=== PATIENT | male | born 1965 | race Two or more races ===

== ENCOUNTER 2021-05-13 13:41 | Inpatient (IN) | payer MEDICARE, MEDICAID ==
[~2021-05-13] VITALS: Ht 170.2 cm; Wt 109.0 kg
[2021-05-13 06:00] VITALS: BP 159/82
[~2021-05-13 13:41] MED LIST: ASPI81CH49 PO; COLLPOW10 XX; ENAL10TA13 PO; GABA300C10 PO; INSLANTI SUBCUT
[2021-05-13 14:23] LABS: Basophils # (auto) 0 10 ^3/uL (0-0.2); Basophils % (auto) 0.3 % (0.0-2.0); Eosinophils # (auto) 0 10 ^3/uL (0-0.8); Hemoglobin 14.7 g/dL (13.5-17.5); Lymphocytes # (auto) 0.6 10 ^3/uL (0.4-5.4); Lymphocytes % (auto) 6.9 % (10.0-50.0); Mean Corpuscular Hemoglobin 30.2 pg (28.0-32.0); Mean Corpuscular Hgb Conc. 34.3 g/dL (32.0-36.0); Monocytes # (auto) 0.7 10 ^3/uL (0-1.3); Monocytes % (auto) 7.3 % (0.0-12.0); Neutrophils % (auto) 85.5 % (37.0-80.0); Red Blood Cells 4.88 10^6/uL (4.5-5.90); Red Cell Distribution Width 12.9 % (11.8-14.3); White Blood Cell 9.3 10^3/uL (4.4-10.8)
[2021-05-13 14:45] LABS: Albumin 2.2 g/dL (3.4-5.0); Calcium 7.9 mg/dL (8.5-10.1); Potassium 4.8 mmol/L (3.5-5.1)
[2021-05-13 14:48] LABS: Lactic Acid w/Reflex 5.8 mmol/L (0.4-2.0)
[2021-05-13 14:51] LABS: BUN/Creatinine Ratio 15.2; Bilirubin, Total 0.5 mg/dL (0.2-1.0); Total Protein 7.8 g/dL (6.4-8.2)
[2021-05-13] MEDS ORDERED: DexAMETHasone SOD PHOS 10MG/1ML VIAL INJ IV ONE (18:15)
[2021-05-13] MEDS ORDERED: NITROGLYCERIN 0.4 MG SL TAB SL PRN ×2 (18:15→21:00)
[2021-05-13] MEDS ORDERED: FUROSEMIDE 40 MG/4 ML VIAL IV ONE (18:15)
[2021-05-13] MEDS ORDERED: ALBUMIN 25% 100 ML IV ONE (18:15)
[2021-05-13] MEDS ORDERED: MORPHINE SULFATE INJECTION 2 MG/ML SYRG IV PRN ×3 (18:15→21:00)
[2021-05-13] MEDS ORDERED: SODIUM CHLORIDE 0.9% 250 ML IV ONE (18:30)
[2021-05-13] MEDS: ALBUMIN 25% 100 ML IV SCH (18:53)
[2021-05-13] MEDS ORDERED: DEXTROSE (50%) 50ML SYRG IV PRN (20:30)
[2021-05-13] MEDS ORDERED: ENOXAPARIN SOD 100 MG/1 ML SYRINGE SC ONE (20:30)
[2021-05-13] MEDS ORDERED: ISOSORBIDE MONONITRATE ER 60 MG TAB PO ONE (20:30)
[2021-05-13] MEDS ORDERED: METOPROLOL SUCCINATE XL 50 MG TAB PO ONE (20:45)
[2021-05-13] MEDS ORDERED: ACETAMINOPHEN 325 MG TAB PO PRN (21:00)
[2021-05-13] MEDS ORDERED: ACETAMINOPHEN 500 MG TAB PO PRN (21:00)
[2021-05-13] MEDS ORDERED: DOCUSATE SOD 100 MG CAP PO PRN (21:00)
[2021-05-13] MEDS ORDERED: hydrALAZINE HCL 20 MG/ML VL IV PRN (21:00)
[2021-05-13] MEDS ORDERED: ALUM & MAG HYDROX-SIMETH LIQ(MAALOX) 30 ML PO PRN (21:00)
[2021-05-13] MEDS ORDERED: REMDESIVIR PER PHARMACY 0 ML IV SCH (21:00)
[2021-05-13] MEDS ORDERED: ONDANSETRON HCL 4 MG/2 ML VIAL IV PRN (21:00)
[2021-05-13] MEDS ORDERED: HYDROcodone-ACET 5/325MG TAB PO PRN (21:00)
[2021-05-13] MEDS ORDERED: LORazepam 0.5 MG TAB PO PRN (21:00)
[2021-05-13] MEDS: DOXYCYCLINE 100MG/250ML 250 ML IV SCH (21:36)
[2021-05-13] MEDS: ATORVASTATIN 20 MG TAB PO SCH (21:37)
[2021-05-13] MEDS: BUDESONIDE (INHALATION) 180 MCG IH IN SCH (22:00)
[2021-05-13] MEDS ORDERED: REMDESIVIR 200 MG in NS 210ml LOADING DOSE ADULT IV ONE (22:15)
[2021-05-13] MEDS: ACCU-CHEK COMFORT CURVE STRIP VI SCH (23:32)
[2021-05-13] MEDS: InsuLIN REG 1unit/0.01ml Soln (100units/ml) SC SCH (23:33)
[2021-05-14] LABS: Basophils # (auto) 0 10 ^3/uL (0-0.2); Basophils % (auto) 0.1 % (0.0-2.0); Eosinophils # (auto) 0 10 ^3/uL (0-0.8); Hemoglobin 13.3 g/dL (13.5-17.5); Lymphocytes # (auto) 0.5 10 ^3/uL (0.4-5.4); Mean Corpuscular Hemoglobin 29.3 pg (28.0-32.0); Mean Corpuscular Hgb Conc. 33.3 g/dL (32.0-36.0); Mean Corpuscular Volume 87.9 fL (80.0-100.0); Monocytes # (auto) 0.5 10 ^3/uL (0-1.3); Monocytes % (auto) 4.8 % (0.0-12.0); Neutrophils # (auto) 8.5 10 ^3/uL (1.6-8.6); Neutrophils % (auto) 90.1 % (37.0-80.0); Nucleated Red Blood Cells % 0.1 %; Red Blood Cells 4.55 10^6/uL (4.5-5.90); White Blood Cell 9.5 10^3/uL (4.4-10.8)
[2021-05-14 00:23] LABS: Potassium 5.4 mmol/L (3.5-5.1)
[2021-05-14 01:08] LABS: Albumin 2.3 g/dL (3.4-5.0); BUN/Creatinine Ratio 16.4; Bilirubin, Total 0.5 mg/dL (0.2-1.0); Calcium 7.5 mg/dL (8.5-10.1); Magnesium 2.2 mg/dL (1.6-2.6); Total Protein 7.1 g/dL (6.4-8.2)
[2021-05-14 01:18] LABS: Thyroid Stimulating Hormone 0.53 uIU/mL (0.358-3.74)
[2021-05-14 01:26] LABS: CRP High Sensitivity 17.3 mg/dL (< 0.3)
[2021-05-14 02:00] LABS: Urine Bacteria NONE SEEN /hpf (None Seen); Urine Blood 1+ /uL (Negative); Urine Hyaline Cast FEW /lpf (0 - 2); Urine Specific Gravity 1.015 (1.001-1.035); Urine WBC 1 /hpf (0 - 3)
[2021-05-14] MEDS: ALBUMIN 25% 100 ML IV SCH ×2 (02:32→10:45)
[2021-05-14 02:52] LABS: Amphetamine Screen, Urine NEGATIVE (NEGATIVE); Barbiturate Scree,Urine NEGATIVE (NEGATIVE); Cocaine Screen, Urine NEGATIVE (NEGATIVE); Opiate Scree,Urine NEGATIVE (NEGATIVE)
[2021-05-14 03:08] LABS: Benzodiazephine Screen, Urine NEGATIVE (NEGATIVE); Cannabinoid Screen, Urine NEGATIVE (NEGATIVE); Phencyclidine Screen, Urine NEGATIVE (NEGATIVE)
[2021-05-14] MEDS: ACCU-CHEK COMFORT CURVE STRIP VI SCH ×4 (05:39→22:42)
[2021-05-14] MEDS: BUMETANIDE 2.5mg/10ml (0.25 mg/ml) INJ IV SCH ×2 (05:45→19:25)
[2021-05-14] MEDS: InsuLIN REG 1unit/0.01ml Soln (100units/ml) SC SCH ×4 (05:52→22:42)
[2021-05-14 06:06] LABS: Basophils # (auto) 0 10 ^3/uL (0-0.2); Basophils % (auto) 0.3 % (0.0-2.0); Eosinophils # (auto) 0 10 ^3/uL (0-0.8); Hemoglobin 12.7 g/dL (13.5-17.5); Lymphocytes # (auto) 0.7 10 ^3/uL (0.4-5.4); Mean Corpuscular Hemoglobin 29.2 pg (28.0-32.0); Mean Corpuscular Hgb Conc. 33.4 g/dL (32.0-36.0); Mean Corpuscular Volume 87.3 fL (80.0-100.0); Monocytes # (auto) 0.5 10 ^3/uL (0-1.3); Monocytes % (auto) 5.9 % (0.0-12.0); Neutrophils # (auto) 6.4 10 ^3/uL (1.6-8.6); Neutrophils % (auto) 84.8 % (37.0-80.0); Nucleated Red Blood Cells % 0.1 %; Red Blood Cells 4.35 10^6/uL (4.5-5.90); Red Cell Distribution Width 12.8 % (11.8-14.3); White Blood Cell 7.6 10^3/uL (4.4-10.8)
[2021-05-14 06:23] LABS: INR 1.04 (0.9-1.15); Partial Thromboplastin Time 34.9 sec (23.6-33.0)
[2021-05-14 06:29] LABS: Potassium 4.6 mmol/L (3.5-5.1)
[2021-05-14 06:57] LABS: Albumin 2.6 g/dL (3.4-5.0); BUN/Creatinine Ratio 17.7; Bilirubin, Total 0.4 mg/dL (0.2-1.0); Calcium 7.7 mg/dL (8.5-10.1); Magnesium 2.9 mg/dL (1.6-2.6); Phosphorus 2.5 mg/dL (2.5-4.90); Uric Acid 9.4 mg/dL (3.5-7.2)
[2021-05-14] MEDS ORDERED: IVERMECTIN 3 MG TAB PO SCH (10:00)
[2021-05-14] MEDS: CHOLECALCIFEROL (VITD3) 2,000 UNIT CAP/TAB PO SCH (10:45)
[2021-05-14] MEDS: ISOSORBIDE MONONITRATE ER 60 MG TAB PO SCH (10:45)
[2021-05-14] MEDS: METOPROLOL SUCCINATE XL 50 MG TAB PO SCH (10:45)
[2021-05-14] MEDS: ASCORBIC ACID 1,000 MG TAB PO SCH (10:45)
[2021-05-14] MEDS: ZINC SULFATE 220mg CAP or TAB PO SCH (10:45)
[2021-05-14] MEDS: ASPirin 81 mg TAB PO SCH (10:45)
[2021-05-14] MEDS: DexAMETHasone SOD PHOS 10MG/1ML VIAL INJ IV SCH (10:45)
[2021-05-14] MEDS: DOXYCYCLINE 100MG/250ML 250 ML IV SCH ×2 (12:26→14:26)
[2021-05-14] MEDS: ALBUTEROL SULF HFA 90MCG INH 200DOSE IN PRN ×2 (15:27→18:48)
[2021-05-14] MEDS: BUDESONIDE (INHALATION) 180 MCG IH IN SCH ×2 (15:27→18:48)
[2021-05-14] MEDS: REMDESIVIR 100mg 100 MG in SODIUM CHL 0.9% 230 ML IV SCH (15:29)
[2021-05-14 18:10] VITALS: BP 159/82
[2021-05-14 20:00] VITALS: BP 159/82
[2021-05-14] MEDS ORDERED: amLODIPine BESYLATE 5 MG TAB PO ONE ×2 (20:45→23:15)
[2021-05-14] MEDS ORDERED: CEFTRIAXONE SODIUM 2 GM in D5W 5% 50 ML IV ONE (20:45)
[2021-05-14] MEDS ORDERED: ENOXAPARIN SOD 100 MG/1 ML SYRINGE SC SCH (21:00)
[2021-05-14 22:00] VITALS: BP 135/66
[2021-05-14] MEDS: INSULIN LANTUS (GLARGINE) 1 /0.01ml (100units/ml) SC SCH (22:41)
[2021-05-14] MEDS: ATORVASTATIN 20 MG TAB PO SCH (22:41)
[2021-05-15 05:00] VITALS: BP 102/65
[2021-05-15] MEDS: ACCU-CHEK COMFORT CURVE STRIP VI SCH ×3 (05:39→18:01)
[2021-05-15] MEDS: InsuLIN REG 1unit/0.01ml Soln (100units/ml) SC SCH ×3 (05:40→18:02)
[2021-05-15 07:04] LABS: BUN/Creatinine Ratio 27.2; Potassium 4.2 mmol/L (3.5-5.1)
[2021-05-15 08:00] VITALS: BP 126/54
[2021-05-15] MEDS: CEFTRIAXONE SODIUM 2 GM in D5W 5% 50 ML IV SCH (08:58)
[2021-05-15] MEDS: DexAMETHasone SOD PHOS 10MG/1ML VIAL INJ IV SCH (08:58)
[2021-05-15] MEDS: DOXYCYCLINE 100MG/250ML 250 ML IV SCH (08:59)
[2021-05-15] MEDS: ASCORBIC ACID 1,000 MG TAB PO SCH (08:59)
[2021-05-15] MEDS: ZINC SULFATE 220mg CAP or TAB PO SCH (08:59)
[2021-05-15] MEDS: CHOLECALCIFEROL (VITD3) 2,000 UNIT CAP/TAB PO SCH (08:59)
[2021-05-15] MEDS: ASPirin 81 mg TAB PO SCH (08:59)
[2021-05-15 09:00] VITALS: BP 126/54
[2021-05-15] MEDS: FUROSEMIDE 40 MG/4 ML VIAL IV SCH (09:01)
[2021-05-15] MEDS: METOPROLOL SUCCINATE XL 50 MG TAB PO SCH (09:02)
[2021-05-15] MEDS: amLODIPine BESYLATE 5 MG TAB PO SCH (09:02)
[2021-05-15] MEDS: ISOSORBIDE MONONITRATE ER 60 MG TAB PO SCH (09:02)
[2021-05-15] MEDS: BUDESONIDE (INHALATION) 180 MCG IH IN SCH ×2 (12:12→22:05)
[2021-05-15] MEDS: ALBUTEROL SULF HFA 90MCG INH 200DOSE IN PRN (12:12)
[2021-05-15 14:00] VITALS: BP 134/63
[2021-05-15] MEDS: REMDESIVIR 100mg 100 MG in SODIUM CHL 0.9% 230 ML IV SCH (14:08)
[2021-05-15 17:04] VITALS: BP 129/79
[2021-05-15 22:00] VITALS: BP 135/62
[2021-05-15] MEDS: INSULIN LANTUS (GLARGINE) 1 /0.01ml (100units/ml) SC SCH (22:00)
[2021-05-15] MEDS: DOXYCYCLINE 100 MG TAB/CAP PO SCH (22:00)
[2021-05-15] MEDS: ATORVASTATIN 20 MG TAB PO SCH (22:00)
[2021-05-15] MEDS: ENOXAPARIN SOD 40 MG/0.4 ML SYRINGE SC SCH (22:00)
[2021-05-16] MEDS: ACCU-CHEK COMFORT CURVE STRIP VI SCH ×4 (00:58→17:00)
[2021-05-16] MEDS: InsuLIN REG 1unit/0.01ml Soln (100units/ml) SC SCH ×4 (00:58→17:03)
[2021-05-16 05:00] VITALS: BP 114/59
[2021-05-16] MEDS: BUDESONIDE (INHALATION) 180 MCG IH IN SCH ×2 (06:21→21:49)
[2021-05-16] MEDS: ALBUTEROL SULF HFA 90MCG INH 200DOSE IN PRN ×2 (06:21→21:49)
[2021-05-16 07:32] LABS: Potassium 4.1 mmol/L (3.5-5.1)
[2021-05-16 07:42] LABS: Albumin 2.7 g/dL (3.4-5.0); BUN/Creatinine Ratio 31.8; Bilirubin, Total 0.4 mg/dL (0.2-1.0); Calcium 8.7 mg/dL (8.5-10.1); Total Protein 7.4 g/dL (6.4-8.2)
[2021-05-16] MEDS: DexAMETHasone SOD PHOS 10MG/1ML VIAL INJ IV SCH (08:45)
[2021-05-16] MEDS: CEFTRIAXONE SODIUM 2 GM in D5W 5% 50 ML IV SCH (08:45)
[2021-05-16] MEDS: FUROSEMIDE 40 MG/4 ML VIAL IV SCH (08:45)
[2021-05-16] MEDS: ASPirin 81 mg TAB PO SCH (08:45)
[2021-05-16] MEDS: amLODIPine BESYLATE 5 MG TAB PO SCH (08:46)
[2021-05-16] MEDS: METOPROLOL SUCCINATE XL 50 MG TAB PO SCH (08:46)
[2021-05-16] MEDS: ZINC SULFATE 220mg CAP or TAB PO SCH (08:46)
[2021-05-16] MEDS: ISOSORBIDE MONONITRATE ER 60 MG TAB PO SCH (08:46)
[2021-05-16] MEDS: DOXYCYCLINE 100 MG TAB/CAP PO SCH ×2 (08:47→22:16)
[2021-05-16] MEDS: ASCORBIC ACID 1,000 MG TAB PO SCH (08:47)
[2021-05-16] MEDS: CHOLECALCIFEROL (VITD3) 2,000 UNIT CAP/TAB PO SCH (08:47)
[2021-05-16 09:00] VITALS: BP 129/60
[2021-05-16] MEDS ORDERED: DEXTROSE (50%) 50ML SYRG IV PRN (09:45)
[2021-05-16] MEDS: ENOXAPARIN SOD 40 MG/0.4 ML SYRINGE SC SCH ×2 (11:30→22:16)
[2021-05-16 13:37] VITALS: BP 108/43
[2021-05-16] MEDS: REMDESIVIR 100mg 100 MG in SODIUM CHL 0.9% 230 ML IV SCH (15:50)
[2021-05-16 17:36] VITALS: BP 124/76
[2021-05-16 22:00] VITALS: BP 133/56
[2021-05-16] MEDS: INSULIN LANTUS (GLARGINE) 1 /0.01ml (100units/ml) SC SCH (22:03)
[2021-05-16] MEDS: ATORVASTATIN 20 MG TAB PO SCH (22:16)
[2021-05-17] MEDS: ACCU-CHEK COMFORT CURVE STRIP VI SCH ×5 (00:07→23:47)
[2021-05-17] MEDS: InsuLIN REG 1unit/0.01ml Soln (100units/ml) SC SCH ×5 (00:08→23:47)
[2021-05-17 05:00] VITALS: BP 120/50
[2021-05-17] MEDS: ALBUTEROL SULF HFA 90MCG INH 200DOSE IN PRN (05:49)
[2021-05-17] MEDS: BUDESONIDE (INHALATION) 180 MCG IH IN SCH ×2 (05:49→22:39)
[2021-05-17 07:06] LABS: Basophils # (auto) 0.1 10 ^3/uL (0-0.2); Eosinophils # (auto) 0 10 ^3/uL (0-0.8); Eosinophils % (auto) 0.3 % (0.0-7.0); Hematocrit 40.1 % (41.0-53.0); Hemoglobin 13.9 g/dL (13.5-17.5); Lymphocytes # (auto) 0.7 10 ^3/uL (0.4-5.4); Lymphocytes % (auto) 7.8 % (10.0-50.0); Mean Corpuscular Hemoglobin 29.6 pg (28.0-32.0); Mean Corpuscular Hgb Conc. 34.6 g/dL (32.0-36.0); Mean Corpuscular Volume 85.6 fL (80.0-100.0); Monocytes # (auto) 0.4 10 ^3/uL (0-1.3); Monocytes % (auto) 4.9 % (0.0-12.0); Neutrophils # (auto) 7.7 10 ^3/uL (1.6-8.6); Nucleated Red Blood Cells % 0.2 %; Red Blood Cells 4.69 10^6/uL (4.5-5.90); Red Cell Distribution Width 13.1 % (11.8-14.3)
[2021-05-17 07:21] LABS: Potassium 4.3 mmol/L (3.5-5.1)
[2021-05-17 07:32] LABS: Albumin 2.5 g/dL (3.4-5.0); BUN/Creatinine Ratio 34.3; Bilirubin, Total 0.4 mg/dL (0.2-1.0); Calcium 8.6 mg/dL (8.5-10.1); Total Protein 6.8 g/dL (6.4-8.2)
[2021-05-17 08:00] VITALS: BP 129/60
[2021-05-17 09:00] VITALS: BP 130/63
[2021-05-17] MEDS: DexAMETHasone SOD PHOS 10MG/1ML VIAL INJ IV SCH (09:24)
[2021-05-17] MEDS: FUROSEMIDE 40 MG/4 ML VIAL IV SCH (09:24)
[2021-05-17] MEDS: ZINC SULFATE 220mg CAP or TAB PO SCH (09:25)
[2021-05-17] MEDS: CEFTRIAXONE SODIUM 2 GM in D5W 5% 50 ML IV SCH (09:25)
[2021-05-17] MEDS: ASPirin 81 mg TAB PO SCH (09:25)
[2021-05-17] MEDS: ISOSORBIDE MONONITRATE ER 60 MG TAB PO SCH (09:26)
[2021-05-17] MEDS: amLODIPine BESYLATE 5 MG TAB PO SCH (09:27)
[2021-05-17] MEDS: DOXYCYCLINE 100 MG TAB/CAP PO SCH ×2 (09:27→21:08)
[2021-05-17] MEDS: METOPROLOL SUCCINATE XL 50 MG TAB PO SCH (09:27)
[2021-05-17] MEDS: CHOLECALCIFEROL (VITD3) 2,000 UNIT CAP/TAB PO SCH (09:28)
[2021-05-17] MEDS: ASCORBIC ACID 1,000 MG TAB PO SCH (09:28)
[2021-05-17] MEDS: ENOXAPARIN SOD 40 MG/0.4 ML SYRINGE SC SCH ×2 (09:28→21:08)
[2021-05-17 13:00] VITALS: BP 120/53
[2021-05-17] MEDS: REMDESIVIR 100mg 100 MG in SODIUM CHL 0.9% 230 ML IV SCH (14:47)
[2021-05-17 17:00] VITALS: BP 137/74
[2021-05-17] MEDS: ATORVASTATIN 20 MG TAB PO SCH (21:07)
[2021-05-17] MEDS: INSULIN LANTUS (GLARGINE) 1 /0.01ml (100units/ml) SC SCH (21:08)
[2021-05-17 22:11] VITALS: BP 139/70
[2021-05-18] MEDS: ALBUTEROL SULF HFA 90MCG INH 200DOSE IN PRN ×3 (00:19→20:37)
[2021-05-18 05:30] VITALS: BP 153/65
[2021-05-18] MEDS: ACCU-CHEK COMFORT CURVE STRIP VI SCH ×4 (05:31→23:10)
[2021-05-18] MEDS: InsuLIN REG 1unit/0.01ml Soln (100units/ml) SC SCH ×4 (05:32→23:12)
[2021-05-18] MEDS: BUDESONIDE (INHALATION) 180 MCG IH IN SCH ×2 (07:08→18:54)
[2021-05-18 07:50] LABS: BUN/Creatinine Ratio 34.6; Calcium 8.9 mg/dL (8.5-10.1); Potassium 4.4 mmol/L (3.5-5.1)
[2021-05-18 08:00] VITALS: BP 130/63
[2021-05-18] MEDS: ASPirin 81 mg TAB PO SCH (09:53)
[2021-05-18] MEDS: DexAMETHasone SOD PHOS 10MG/1ML VIAL INJ IV SCH (09:53)
[2021-05-18] MEDS: ZINC SULFATE 220mg CAP or TAB PO SCH (09:54)
[2021-05-18] MEDS: ISOSORBIDE MONONITRATE ER 60 MG TAB PO SCH (09:55)
[2021-05-18] MEDS: amLODIPine BESYLATE 5 MG TAB PO SCH (10:01)
[2021-05-18] MEDS: ASCORBIC ACID 1,000 MG TAB PO SCH (10:02)
[2021-05-18] MEDS: CHOLECALCIFEROL (VITD3) 2,000 UNIT CAP/TAB PO SCH (10:02)
[2021-05-18] MEDS: DOXYCYCLINE 100 MG TAB/CAP PO SCH (10:02)
[2021-05-18] MEDS: METOPROLOL SUCCINATE XL 50 MG TAB PO SCH (10:02)
[2021-05-18] MEDS: FUROSEMIDE 40 MG/4 ML VIAL IV SCH (10:03)
[2021-05-18] MEDS: ENOXAPARIN SOD 40 MG/0.4 ML SYRINGE SC SCH ×2 (10:03→23:09)
[2021-05-18] MEDS: CEFTRIAXONE SODIUM 2 GM in D5W 5% 50 ML IV SCH (10:04)
[2021-05-18 13:00] VITALS: BP 125/52
[2021-05-18 16:54] VITALS: BP 136/70
[2021-05-18 22:00] VITALS: BP 112/57
[2021-05-18] MEDS: ATORVASTATIN 20 MG TAB PO SCH (23:09)
[2021-05-18] MEDS: INSULIN LANTUS (GLARGINE) 1 /0.01ml (100units/ml) SC SCH (23:10)
[2021-05-19 05:00] VITALS: BP 129/56
[2021-05-19] MEDS: ACCU-CHEK COMFORT CURVE STRIP VI SCH ×3 (06:00→17:43)
[2021-05-19] MEDS: InsuLIN REG 1unit/0.01ml Soln (100units/ml) SC SCH ×3 (06:38→17:44)
[2021-05-19 08:45] VITALS: BP 124/57
[2021-05-19] MEDS: BUDESONIDE (INHALATION) 180 MCG IH IN SCH ×2 (09:32→22:00)
[2021-05-19] MEDS: ALBUTEROL SULF HFA 90MCG INH 200DOSE IN PRN ×2 (09:32→22:54)
[2021-05-19] MEDS: ASPirin 81 mg TAB PO SCH (10:16)
[2021-05-19] MEDS: ZINC SULFATE 220mg CAP or TAB PO SCH (10:16)
[2021-05-19] MEDS: CEFTRIAXONE SODIUM 2 GM in D5W 5% 50 ML IV SCH (10:16)
[2021-05-19] MEDS: DexAMETHasone SOD PHOS 10MG/1ML VIAL INJ IV SCH (10:16)
[2021-05-19] MEDS: CHOLECALCIFEROL (VITD3) 2,000 UNIT CAP/TAB PO SCH (10:17)
[2021-05-19] MEDS: ENOXAPARIN SOD 40 MG/0.4 ML SYRINGE SC SCH ×2 (10:17→21:21)
[2021-05-19] MEDS: ASCORBIC ACID 1,000 MG TAB PO SCH (10:17)
[2021-05-19] MEDS: amLODIPine BESYLATE 5 MG TAB PO SCH (10:32)
[2021-05-19] MEDS: FUROSEMIDE 40 MG/4 ML VIAL IV SCH (10:32)
[2021-05-19] MEDS: ISOSORBIDE MONONITRATE ER 60 MG TAB PO SCH (10:32)
[2021-05-19] MEDS: METOPROLOL SUCCINATE XL 50 MG TAB PO SCH (10:33)
[2021-05-19 15:00] LABS: BUN/Creatinine Ratio 42.2; Calcium 8.6 mg/dL (8.5-10.1); Potassium 4.4 mmol/L (3.5-5.1)
[2021-05-19 17:00] VITALS: BP 112/54
[2021-05-19] MEDS: ATORVASTATIN 20 MG TAB PO SCH (21:21)
[2021-05-19] MEDS: INSULIN LANTUS (GLARGINE) 1 /0.01ml (100units/ml) SC SCH (21:23)
[2021-05-19 22:00] VITALS: BP 129/71
[2021-05-20] VITALS (8 sets, daily range): BP systolic 117–133; BP diastolic 38–72
[2021-05-20] MEDS: ACCU-CHEK COMFORT CURVE STRIP VI SCH ×4 (00:46→17:41)
[2021-05-20] MEDS: InsuLIN REG 1unit/0.01ml Soln (100units/ml) SC SCH ×4 (00:46→17:41)
[2021-05-20 06:16] LABS: Basophils # (auto) 0 10 ^3/uL (0-0.2); Basophils % (auto) 0.2 % (0.0-2.0); Eosinophils # (auto) 0 10 ^3/uL (0-0.8); Hematocrit 38.7 % (41.0-53.0); Lymphocytes # (auto) 0.6 10 ^3/uL (0.4-5.4); Lymphocytes % (auto) 5.9 % (10.0-50.0); Mean Corpuscular Hgb Conc. 33.7 g/dL (32.0-36.0); Mean Corpuscular Volume 86.1 fL (80.0-100.0); Monocytes # (auto) 0.5 10 ^3/uL (0-1.3); Monocytes % (auto) 5.3 % (0.0-12.0); Neutrophils # (auto) 8.3 10 ^3/uL (1.6-8.6); Neutrophils % (auto) 88.6 % (37.0-80.0); White Blood Cell 9.4 10^3/uL (4.4-10.8)
[2021-05-20 06:33] LABS: Albumin 2.4 g/dL (3.4-5.0); Calcium 8.6 mg/dL (8.5-10.1); Magnesium 3.7 mg/dL (1.6-2.6); Potassium 4.6 mmol/L (3.5-5.1)
[2021-05-20 06:42] LABS: BUN/Creatinine Ratio 46.2; Bilirubin, Total 0.3 mg/dL (0.2-1.0); CRP High Sensitivity 3.02 mg/dL (< 0.3); Total Protein 6.2 g/dL (6.4-8.2)
[2021-05-20 07:39] LABS: Lactic Acid w/Reflex 3.2 mmol/L (0.4-2.0)
[2021-05-20] MEDS: CEFTRIAXONE SODIUM 2 GM in D5W 5% 50 ML IV SCH (10:00)
[2021-05-20] MEDS: amLODIPine BESYLATE 5 MG TAB PO SCH (10:00)
[2021-05-20] MEDS: ASCORBIC ACID 1,000 MG TAB PO SCH (10:00)
[2021-05-20] MEDS: ENOXAPARIN SOD 40 MG/0.4 ML SYRINGE SC SCH ×2 (10:00→22:37)
[2021-05-20] MEDS: BUDESONIDE (INHALATION) 180 MCG IH IN SCH ×2 (10:00→22:24)
[2021-05-20] MEDS: ZINC SULFATE 220mg CAP or TAB PO SCH (10:00)
[2021-05-20] MEDS: ASPirin 81 mg TAB PO SCH (10:00)
[2021-05-20] MEDS: CHOLECALCIFEROL (VITD3) 2,000 UNIT CAP/TAB PO SCH (10:00)
[2021-05-20] MEDS: ISOSORBIDE MONONITRATE ER 60 MG TAB PO SCH (10:00)
[2021-05-20] MEDS: DexAMETHasone SOD PHOS 10MG/1ML VIAL INJ IV SCH (10:00)
[2021-05-20] MEDS: FUROSEMIDE 40 MG/4 ML VIAL IV SCH (10:00)
[2021-05-20] MEDS: METOPROLOL SUCCINATE XL 50 MG TAB PO SCH (10:00)
[2021-05-20] MEDS: INSULIN LANTUS (GLARGINE) 1 /0.01ml (100units/ml) SC SCH (22:38)
[2021-05-20] MEDS: ALBUTEROL SULF HFA 90MCG INH 200DOSE IN PRN (23:29)
[2021-05-21] VITALS (8 sets, daily range): BP systolic 108–149; BP diastolic 51–84
[2021-05-21] MEDS: ACCU-CHEK COMFORT CURVE STRIP VI SCH ×4 (00:22→17:07)
[2021-05-21] MEDS: InsuLIN REG 1unit/0.01ml Soln (100units/ml) SC SCH ×4 (00:24→17:16)
[2021-05-21 06:53] LABS: BUN/Creatinine Ratio 47.8; Calcium 8.4 mg/dL (8.5-10.1); Potassium 4.7 mmol/L (3.5-5.1)
[2021-05-21 06:55] LABS: Lactic Acid w/Reflex 2.6 mmol/L (0.4-2.0)
[2021-05-21] MEDS: FUROSEMIDE 40 MG/4 ML VIAL IV SCH (09:33)
[2021-05-21] MEDS: ZINC SULFATE 220mg CAP or TAB PO SCH (09:33)
[2021-05-21] MEDS: DexAMETHasone SOD PHOS 10MG/1ML VIAL INJ IV SCH (09:33)
[2021-05-21] MEDS: ASPirin 81 mg TAB PO SCH (09:33)
[2021-05-21] MEDS: ISOSORBIDE MONONITRATE ER 60 MG TAB PO SCH (09:33)
[2021-05-21] MEDS: METOPROLOL SUCCINATE XL 50 MG TAB PO SCH (09:34)
[2021-05-21] MEDS: CHOLECALCIFEROL (VITD3) 2,000 UNIT CAP/TAB PO SCH (09:34)
[2021-05-21] MEDS: ENOXAPARIN SOD 40 MG/0.4 ML SYRINGE SC SCH ×2 (09:34→23:11)
[2021-05-21] MEDS: ASCORBIC ACID 1,000 MG TAB PO SCH (09:34)
[2021-05-21] MEDS: amLODIPine BESYLATE 5 MG TAB PO SCH (09:34)
[2021-05-21] MEDS: CEFTRIAXONE SODIUM 2 GM in D5W 5% 50 ML IV SCH (09:50)
[2021-05-21] MEDS: BUDESONIDE (INHALATION) 180 MCG IH IN SCH (10:20)
[2021-05-21] MEDS: ALBUTEROL SULF HFA 90MCG INH 200DOSE IN PRN (11:48)
[2021-05-21] MEDS: INSULIN LANTUS (GLARGINE) 1 /0.01ml (100units/ml) SC SCH (22:46)
[2021-05-22] MEDS: ACCU-CHEK COMFORT CURVE STRIP VI SCH ×4 (01:06→17:22)
[2021-05-22] MEDS: InsuLIN REG 1unit/0.01ml Soln (100units/ml) SC SCH ×4 (01:06→17:22)
[2021-05-22 04:45] VITALS: BP 118/60
[2021-05-22] MEDS: BUDESONIDE (INHALATION) 180 MCG IH IN SCH ×2 (05:57→19:43)
[2021-05-22] MEDS: ALBUTEROL SULF HFA 90MCG INH 200DOSE IN PRN ×2 (05:57→19:43)
[2021-05-22] MEDS: DexAMETHasone SOD PHOS 10MG/1ML VIAL INJ IV SCH (08:48)
[2021-05-22] MEDS: ASPirin 81 mg TAB PO SCH (08:48)
[2021-05-22] MEDS: CEFTRIAXONE SODIUM 2 GM in D5W 5% 50 ML IV SCH (08:48)
[2021-05-22] MEDS: ISOSORBIDE MONONITRATE ER 60 MG TAB PO SCH (08:49)
[2021-05-22] MEDS: ENOXAPARIN SOD 40 MG/0.4 ML SYRINGE SC SCH ×2 (08:49→21:43)
[2021-05-22] MEDS: amLODIPine BESYLATE 5 MG TAB PO SCH (08:49)
[2021-05-22] MEDS: CHOLECALCIFEROL (VITD3) 2,000 UNIT CAP/TAB PO SCH (08:49)
[2021-05-22 09:00] VITALS: BP 147/76
[2021-05-22] MEDS: METOPROLOL SUCCINATE XL 50 MG TAB PO SCH (11:00)
[2021-05-22 13:11] VITALS: BP 127/61
[2021-05-22 17:27] VITALS: BP 117/57
[2021-05-22 17:32] LABS: BUN/Creatinine Ratio 48.4; Potassium 5.2 mmol/L (3.5-5.1)
[2021-05-22 18:55] VITALS: BP 117/57
[2021-05-22] MEDS: INSULIN LANTUS (GLARGINE) 1 /0.01ml (100units/ml) SC SCH (21:44)
[2021-05-22 22:27] VITALS: BP 131/80
[2021-05-23] VITALS (11 sets, daily range): BP systolic 108–131; BP diastolic 29–80
[2021-05-23] MEDS: InsuLIN REG 1unit/0.01ml Soln (100units/ml) SC SCH ×4 (00:11→17:13)
[2021-05-23] MEDS: ACCU-CHEK COMFORT CURVE STRIP VI SCH ×4 (00:16→17:10)
[2021-05-23 06:39] LABS: Calcium 9.4 mg/dL (8.5-10.1)
[2021-05-23 06:42] LABS: BUN/Creatinine Ratio 49.1
[2021-05-23] MEDS: DexAMETHasone SOD PHOS 10MG/1ML VIAL INJ IV SCH (09:05)
[2021-05-23] MEDS: METOPROLOL SUCCINATE XL 50 MG TAB PO SCH (09:05)
[2021-05-23] MEDS: amLODIPine BESYLATE 5 MG TAB PO SCH (09:05)
[2021-05-23] MEDS: CEFTRIAXONE SODIUM 2 GM in D5W 5% 50 ML IV SCH (09:05)
[2021-05-23] MEDS: ISOSORBIDE MONONITRATE ER 60 MG TAB PO SCH (09:05)
[2021-05-23] MEDS: ASPirin 81 mg TAB PO SCH (09:05)
[2021-05-23] MEDS: CHOLECALCIFEROL (VITD3) 2,000 UNIT CAP/TAB PO SCH (09:06)
[2021-05-23] MEDS: ENOXAPARIN SOD 40 MG/0.4 ML SYRINGE SC SCH (09:06)
[2021-05-23] MEDS ORDERED: InsuLIN REG 1unit/0.01ml Soln (100units/ml) IV ONE (09:15)
[2021-05-23] MEDS: BUDESONIDE (INHALATION) 180 MCG IH IN SCH ×2 (10:00→19:44)
[2021-05-23] MEDS: ALBUTEROL SULF HFA 90MCG INH 200DOSE IN PRN ×2 (10:55→19:44)
[2021-05-23] MEDS ORDERED: INSULIN LANTUS (GLARGINE) 1 /0.01ml (100units/ml) SC SCH (22:00)
[2021-05-24] MEDS: InsuLIN REG 1unit/0.01ml Soln (100units/ml) SC SCH ×3 (00:01→13:36)
[2021-05-24] MEDS: ACCU-CHEK COMFORT CURVE STRIP VI SCH ×3 (00:01→13:34)
[2021-05-24 05:00] VITALS: BP 110/47
[2021-05-24 07:30] VITALS: BP 116/52
[2021-05-24 08:39] LABS: Potassium 5.1 mmol/L (3.5-5.1)
[2021-05-24 09:00] VITALS: BP 105/32
[2021-05-24 09:09] LABS: BUN/Creatinine Ratio 62.4; Calcium 8.6 mg/dL (8.5-10.1)
[2021-05-24] MEDS: ASPirin 81 mg TAB PO SCH (09:34)
[2021-05-24] MEDS: ISOSORBIDE MONONITRATE ER 60 MG TAB PO SCH (09:38)
[2021-05-24] MEDS: amLODIPine BESYLATE 5 MG TAB PO SCH (09:39)
[2021-05-24] MEDS: METOPROLOL SUCCINATE XL 50 MG TAB PO SCH (09:40)
[2021-05-24] MEDS: ENOXAPARIN SOD 40 MG/0.4 ML SYRINGE SC SCH ×2 (09:41)
[2021-05-24] MEDS: CHOLECALCIFEROL (VITD3) 2,000 UNIT CAP/TAB PO SCH (09:41)
[2021-05-24] MEDS: BUDESONIDE (INHALATION) 180 MCG IH IN SCH (09:52)
[2021-05-24] MEDS: CEFTRIAXONE SODIUM 2 GM in D5W 5% 50 ML IV SCH (10:33)
[2021-05-24 13:00] VITALS: BP 71/46
[2021-05-24 17:00] VITALS: BP 49/13
[2021-05-25] MEDS ORDERED: EPINEPHrine HCL 1 MG/10 ML SYRG IV ONE (12:24)
[2021-05-25] MEDS ORDERED: SODIUM BICARBONATE 8.4% INJ 50ML SYRINGE IV ONE (12:24)
== END 2021-05-25 05:32 | DRG 871 ==
LOC: ER 13:41 → TELE 18:15 → TELE-EAST 05-14 18:03 → TELE-E-ADS 05-14 20:13 → TELE-EAST 05-25 05:32
PROVIDERS: ADMIT Hospitalist; ATTEND Internal Medicine Nephrology
PROC: XW033E5 Introduction of Remdesivir Anti-infective into Peripheral Vein, Percutaneous Approach, New Technology Group 5 (ICD-10-PCS; 2021-05-13)
PROC: 5A0955A Assistance with Respiratory Ventilation, Greater than 96 Consecutive Hours, High Flow/Velocity Cannula (ICD-10-PCS; principal; 2021-05-14)
PROC: 5A09357 Assistance with Respiratory Ventilation, Less than 24 Consecutive Hours, Continuous Positive Airway Pressure (ICD-10-PCS; 2021-05-24)
PROC: 5A12012 Performance of Cardiac Output, Single, Manual (ICD-10-PCS; 2021-05-24)
DX: A41.89 Other specified sepsis (principal); U07.1 COVID-19; J96.01 Acute respiratory failure with hypoxia; N18.6 End stage renal disease; I16.9 Hypertensive crisis, unspecified; E87.1 Hypo-osmolality and hyponatremia; J98.11 Atelectasis; I12.0 Hypertensive chronic kidney disease with stage 5 chronic kidney disease or end stage renal disease; I27.82 Chronic pulmonary embolism; D89.839 Cytokine release syndrome, grade unspecified; E88.09 Other disorders of plasma-protein metabolism, not elsewhere classified; E66.01 Morbid (severe) obesity due to excess calories; E11.40 Type 2 diabetes mellitus with diabetic neuropathy, unspecified; E78.5 Hyperlipidemia, unspecified; I25.10 Atherosclerotic heart disease of native coronary artery without angina pectoris; E11.65 Type 2 diabetes mellitus with hyperglycemia; I27.20 Pulmonary hypertension, unspecified; I46.9 Cardiac arrest, cause unspecified; E87.5 Hyperkalemia; E11.51 Type 2 diabetes mellitus with diabetic peripheral angiopathy without gangrene; E11.22 Type 2 diabetes mellitus with diabetic chronic kidney disease; Z68.37 Body mass index [BMI] 37.0-37.9, adult; Z83.3 Family history of diabetes mellitus
CPT/HCPCS: 36415; 36600; 71045; 80048; 80053; 80061; 80307; 81001; 82306; 82728; 82805; 82962; 83036; 83605; 83615; 83735; 83880; 84100; 84443; 84484; 84550; 85025; 85379; 85610; 85730; 86141; 87040; 87086; 93005; 93306; 93970; 94002; 94640; 94660; 96365; 96375; G0378; J0696; J1100; J1815; J2405; J3490; J7060; P9047